=== PATIENT | male | born 1970 ===

== ENCOUNTER 2023-06-08 18:02 | Inpatient (IN) | payer OTHER ==
[~2023-06-08] VITALS: Ht 188 cm; Wt 106.6 kg
[2023-06-08 20:08] VITALS: BP 163/101
[2023-06-08 20:31] VITALS: BP 144/92
[2023-06-08 21:15] LABS: Hematocrit 45.6 % (37.0-53.0); Hemoglobin 15.3 g/dL (13.5-17.5)
[2023-06-09] VITALS (10 sets, daily range): BP systolic 110–141; BP diastolic 76–93
[2023-06-09 02:54] LABS: BASOPHILS ABSOLUTE AUTO 0.03 K/mm3 (0.00-0.23); BASOPHILS PERCENT AUTO 0 % (0-2); EOSINOPHILS ABSOLUTE AUTO 0.26 K/mm3 (0.00-0.68); EOSINOPHILS PERCENT AUTO 3 % (0-6); Hemoglobin 14.6 g/dL (13.5-17.5); IMMATURE GRAN ABSOLUTE AUTO 0.02 K/mm3 (0.00-0.10); IMMATURE GRAN PERCENT AUTO 0 % (0-1); LYMPHOCYTES ABSOLUTE AUTO 3.93 K/mm3 (0.84-5.20); LYMPHOCYTES PERCENT AUTO 42 % (21-46); MONOCYTES ABSOLUTE AUTO 0.79 K/mm3 (0.16-1.47); MONOCYTES PERCENT AUTO 8 % (4-13); Mean Corpuscular HGB 28.4 pg (26.0-34.0); Mean Corpuscular Volume 84 fL (80-100); Mean Platelet Volume 10.5 fL (9.1-12.4); NEUTROPHILS ABSOLUTE AUTO 4.35 K/mm3 (1.96-9.15); NEUTROPHILS PERCENT AUTO 46 % (41-73); Platelet Count 226 K/mm3 (150-400); RDW Coefficient Variation 13.2 % (11.7-14.2); RDW Standard Deviation 40.2 fL (35.1-46.3); Red Blood Cell Count 5.14 M/mm3 (4.30-5.90); White Blood Cell Count 9.38 K/mm3 (4.00-11.30)
[2023-06-09 03:23] LABS: Alanine Aminotransfer (ALT/SGP 28 U/L (12-78); Albumin, Blood 3.4 g/dL (3.4-5.0); Albumin/Globulin Ratio 0.9 (0.8-1.8); Alk Phos 71 U/L (50-136); Anion Gap 6 mmol/L (6-16); Aspartate Aminotrans (AST/SGOT 20 U/L (12-37); Bilirubin, Total 0.5 mg/dL (0.1-1.0); Blood Urea Nitrogen 11 mg/dL (8-24); Bun/Creatinine Ratio 17.2 (12.0-20.0); CHOL/HDL RATIO 5.3; CO2, Blood 27 mmol/L (21-32); Calcium, Blood 8.3 mg/dL (8.5-10.1); Chloride, Blood 109 mmol/L (98-108); Cholesterol 196 mg/dL (50-200); Creatinine, Blood 0.64 mg/dL (0.60-1.20); Globulin, Blood 3.6 g/dL (2.2-4.0); Glomerular Filtration Rate 113 (60-); Glucose, Blood 123 mg/dL (70-99); HDL Cholesterol 37 mg/dL (>39); LDL/HDL RATIO 3.6; Low Density Lipoprotein Chol 132 mg/dL (0-110); Magnesium, Blood 2.2 mg/dL (1.6-2.4); Phosphorus, Blood 2.9 mg/dL (2.5-4.9); Potassium, Blood 3.2 mmol/L (3.5-5.5); Sodium, Blood 142 mmol/L (136-145); Triglycerides 134 mg/dL (30-160); Very Low Density Lipoprot Chol 26 mg/dL (6-32)
[2023-06-09] MEDS ORDERED: AMLO10 PO (10:20)
[2023-06-09] MEDS ORDERED: LOSA25 PO (10:21)
[2023-06-09] MEDS ORDERED: PAXIL2010 PO (10:21)
--- NOTE | 2023-06-09 13:30 | NUR ---
UPDATE PT ARRIVED POST ANGIOGRAM. PT ALERT AND ORIENTED. BP STABLE. HR NSR 70'S. O2 SATS >90% ON RA. PT DENIES ANY PAIN. RIGHT RADIAL SITE WITH TR BAND IN PLACE AND 11ML OF AIR IN BAND. NO BLEEDING, BRUISING OR HEMATOMA NOTED. PT EDUCATED ON RIGHT ARM RESTRICTIONS. AT BEDSIDE. PT ORIENTED TO NEW ROOM AND UNIT. WILL CONTINUE TO MONITOR CLOSELY
--- NOTE | 2023-06-09 15:52 | NUR ---
PT AOX4 THIS AM NO DISTRESS NOTED. PT DENIED ANY SOB OR CHEST PAIN. PT INDEPENDENT IN ROOM. PT WAS TAKEN TO PAPER RULER AND THEN REPORT WAS GIVEN TO RECIEVING RN FOR PCU17. COOPERATIVE WITH ALL CARE.
--- NOTE | 2023-06-09 17:36 | NUR ---
SHIFT SUMMARY PT REMAINS ALERT AND ORIENTED. VS STABLE. HR REMAINS NSR. PT DENIES ANY PAIN. RIGHT RADIAL SITE RECOVERED PER ORDERS. TR BAND TO BE REMOVED AT APPROXIMATELY 1835. NO BLEEDING, BRUISING OR HEMATOMA. PT UP INDEPENDENT TO THE BATHROOM NEEDED. PT FOLLOWING RIGHT ARM RESTRICTIONS. WILL CONTINUE TO MONITOR AND REPORT TO ONCOMING RN
[2023-06-10 01:30] VITALS: BP 114/72
[2023-06-10 05:10] VITALS: BP 111/71
--- NOTE | 2023-06-10 05:12 | NUR ---
NOC SHIFT SUMMARY PT ALERT AND ORIENTED X4 OVERNIGHT, DENIES CP OR DISCOMFORT. R RADIAL SITE WNL, ARMBOARD AND TEGADERM IN PLACE. SR ON TELE. VSS PER PT TREND. UAL IN ROOM. WILL PASS ON TO DAY RN
[2023-06-10 07:57] VITALS: BP 129/84
[2023-06-10] MEDS ORDERED: ASPI81CH PO (10:08)
[2023-06-10] MEDS ORDERED: ATOR80 PO (10:10)
[2023-06-10] MEDS ORDERED: CLOP75 PO (10:10)
[2023-06-10] MEDS ORDERED: METO25ER PO (10:10)
--- NOTE | 2023-06-10 11:02 | NUR ---
UPDATE PT AWAKE AND ALERT THIS AM. VS STABLE. HR NSR. PT DENIES ANY PAIN. RIGHT RADIAL SITE WITH CLEAR DRESSING AND ARM BOARD IN PLACE. NO BLEEDING, BRUISING OR HEMATOMA. PT PROVIDED DISCHARGE INSTRUCTIONS AND EDUCATED ON MEDICATION CHANGES. ALL QUESTIONS ANSWERED. PT REFUSED WC RIDE OUT, BUT WAS ACCOMPANIED HE WALKED OUT.
== END 2023-06-10 11:25 | disposition home or self-care (01) | DRG 322 ==
LOC: MEDS 18:02 → PCU 19:59 → MEDS 20:04 → PCU 06-09 12:36
PROVIDERS: Family Medicine; Nurse Practitioner Acute Care; ADMIT Internal Medicine
PROC: 027034Z Dilation of Coronary Artery, One Artery with Drug-eluting Intraluminal Device, Percutaneous Approach (ICD-10-PCS; principal; 2023-06-09)
PROC: 4A023N7 Measurement of Cardiac Sampling and Pressure, Left Heart, Percutaneous Approach (ICD-10-PCS; 2023-06-09)
PROC: B2111ZZ Fluoroscopy of Multiple Coronary Arteries using Low Osmolar Contrast (ICD-10-PCS; 2023-06-09)
DX: I21.4 Non-ST elevation (NSTEMI) myocardial infarction (principal); I10 Essential (primary) hypertension; I25.10 Atherosclerotic heart disease of native coronary artery without angina pectoris; M17.9 Osteoarthritis of knee, unspecified; F12.90 Cannabis use, unspecified, uncomplicated; E78.5 Hyperlipidemia, unspecified; Z98.890 Other specified postprocedural states; Z87.891 Personal history of nicotine dependence
CPT/HCPCS: 36415; 76937; 80053; 80061; 83735; 84100; 84484; 85014; 85018; 85025; 85347; 85520; 93005; 93010; 93306; 93458; 99152; 99153; A9270; C1725; C1769; C1874; C1887; C1894; C9600; J1644; J2250; J3010; J3246; J7030; J7050; Q9967